=== PATIENT | male | born 1965 | race Caucasian/White ===

== ENCOUNTER → 2023-03-08 | Outpatient (CLI) | payer BC, SELFPAY ==
[2023-03-08 12:43] LABS: Absolute Lymphocyte Count 1.32 X10^3/uL (0.83-4.51); Absolute Neutrophil Count 2.6 X10^3/uL (2.0-7.7); Basophil% 2.1 % (0-1); Eosinophil# 0.29 X10^3/uL; Hematocrit 45.5 % (40-54); Lymphocyte # 1.32 X10^3/ul (0.83-4.51); Lymphocyte % 27.4 % (19-41); Mean Corpuscular Hgb 28.2 pg (27.0-32.0); Mean Corpuscular Volume 85.5 fL (80-94); Monocyte# 0.51 X10^3/uL; Monocyte% 10.6 % (0-10); NRBC Flagged by Analyzer 0 % (0-5); Neutrophil # 2.58 X10^3/uL (2.7-7.7); Neutrophil % 53.5 % (47-70); Platelet Count 285 K/mm3 (150-450); RBC Distribution Width CV 12.9 % (11.6-14.6); RBC Distribution Width SD 39.2 fl (35.1-43.9); Red Blood Count 5.32 M/mm3 (4.6-6.2); White Blood Count 4.8 K/mm3 (4.4-11.0)
[2023-03-08 13:20] LABS: ALB/GLOB Ratio 1.1 RATIO (0.9-2.4); AST(SGOT) 24 U/L (15-37); Alanine Aminotransfer ALT/SGPT 44 U/L (16-61); Albumin, Serum 3.9 g/dL (3.2-5.0); Alkaline Phosphatase 70 U/L (45-117); Anion Gap 4 (5-15); BUN 17 mg/dL (7-18); BUN/Creat Ratio 18.8 RATIO (10-20); Chloride 108 mmol/L (98-107); Cholesterol 271 mg/dL (200); EST Glomerular Filtration Rate 93 mL/min (>60); Est Glom Filt Rate - Afr Amer 112 mL/min (>60); Globulin 3.5 g/dL (2.2-4.2); Glucose 103 mg/dL (74-106); High Density Lipoprotein 62 mg/dL; PSA,Total- Diagnostic 1.49 ng/mL (0.0-4.0); Potassium 4.2 mmol/L (3.5-5.1); Protein, Total 7.4 g/dL (6.4-8.2); Sodium Level 139 mmol/L (136-145); Triglycerides 141 mg/dL; Very Low Density Lipoprotein 28 mg/dL (5-40)
== END | disposition home or self-care (01) ==
LOC: BIMLAB 09:29
PROVIDERS: PCP Internal Medicine; Referring Provider Internal Medicine; Visit Provider Internal Medicine
DX: E78.2 Mixed hyperlipidemia (principal); N39.43 Post-void dribbling; K62.5 Hemorrhage of anus and rectum
CPT/HCPCS: 36415; 80053; 80061; 84153; 85025

== ENCOUNTER 2023-05-11 06:46 | Day surgery (SDC) | payer BC, SELFPAY ==
--- NOTE | 2023-05-11 | COLBX_PTH ---
PATIENT: ISAEL SERRANO III LOC: EN U#:[id number] AGE/SX: 58/M ROOM: RE05/11/[address]: Dr. Pasquale Serna MD : 1965 BED: DIS: 05/11/2023 SPEC #: [id number] RECD: 05/11/23 11:44 STATUS: BARNEY QUEEN #: [id number] EDY: 05/11/23 00:[address]: Pasquale Serna DEPT: SURGICAL PATHOLOGY RECD BY: Gurinder Steve ENTERED: 05/11/23 11:45 SP TYPE: COLON BX OTHR DR: Dr. Juanita Regan MD Tissues: A - COLON BIOPSY B - Rectum, NOS Procedures: Surgery Specimen Level IV HEADER OPERATION: Colonoscopy with polypectomy PRE-OP DIAGNOSIS: Blood in stool TISSUE SUBMITTED: A- Colon polyp descending colon, B- Colon polyp rectum MICROSCOPIC DIAGNOSIS A. Descending colon polyp, polypectomy: Tubular adenoma with cautery artifacts. B. Rectum polyp, polypectomy: Hyperplastic polyp with cautery artifacts. Mikey 05/14/23 MICROSCOPIC DESCRIPTION Slides are reviewed. GROSS DESCRIPTION A. Received in fixative is one container labeled with the patient's name and designated Colon polyp descending colon. The specimen consists of one irregular fragment of light polo soft tissue that measures 0.4 x 0.3 x 0.1 cm. The specimen is totally submitted in one cassette. B. Received in fixative is one container labeled with the patient's name and designated Colon polyp rectum. The specimen consists of one irregular fragment of light polo soft tissue that measures 0.3 x 0.3 x 0.1 cm. The specimen is totally submitted in one cassette. Ramin 05/11/2023 TC:1 CPT: 74179A7
[2023-05-11 07:11] VITALS: BP 124/85; PULSE 66; RESP 16; TEMP 36.7; O2SAT 96; BMI 30.3
[2023-05-11] MEDS: Lactated Ringers 1,000 ML 15 ML IV (07:14)
--- NOTE | 2023-05-11 08:40 | PCM.HP.BLA ---
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 Is patient in pain?: No Allergies No Known Allergies Allergy (Unverified 03/23/23 14:35) Medications multivitamin with minerals-folic acid 200 mcg chewable tablet (Men's Daily Gummies) tab PO 11/24/22 [History Confirmed 03/23/23] atorvastatin 10 mg tablet (Lipitor) 10 mg PO QHS #30 tabs 03/09/23 [Rx Confirmed 03/23/23] PFSH Medical History De Quervain's tenosynovitis, right Ganglion cyst of dorsum of right wrist GERD (gastroesophageal reflux disease) Hyperlipemia Mitral valve prolapse Right carpal tunnel syndrome Right wrist pain Surgical History No pertinent past surgical history Family History Aunt DiabetesAunt Heart diseaseFather Hyperlipidemia SchizophreniaGrandfather AlcoholismMother ArthritisGrandmother ArthritisSister Skin cancerOther Hypertension Social History adopted: No household members: spouse and children number of children: 2 current occupational status: employed 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 pets and animals: Yes Smoking Status: Former smoker quit date: 02/13/96 pack-years: 13 Tobacco: How many years used: 13 Electronic Cigarette Use: not used alcohol intake: current alcohol intake frequency: 0-2 drinks per day Alcohol type: hard liquor substance use type: does not use caffeine: Yes (3) Type: coffee frequency: 1-2 times per week seatbelt use: always do you feel safe at home: Yes HPI HPI HPI: Patient is a 57-year-old male here for rectal bleeding. He reports the bleeding started 5 to 6 years ago. He says it is painless and it was bright red but it is becoming a little bit darker. He says this happens about 75% of his bowel movements. He had a colonoscopy 3 years ago and a few polyps were removed but nothing was done about the continued bleeding and he continued to bleed for the last 3 years. He denies any abdominal pain. No family history of colon cancer. ROS General General: Yes weight change (gain) HEENT HEENT: Yes difficulty swallowing Musc Musculoskeletal: Yes arthritis Gastro Gastrointestinal: Yes blood in stool Exam Const General: cooperative Orientation: alert and oriented x3 HENMT Head: normal to inspection Neck Neck: normal visual inspection and full ROM Chest Chest palpation & inspection: normal inspection of the chest Resp Effort & Inspection: normal respiratory effort Auscultation: clear to auscultation bilaterally Cardio Rate: regular rate Rhythm: regular rhythm GI Inspection: non-distended Palpation: soft and nontender Skin General: no rashes or lesions noted Neuro General: patient alert and patient oriented x3 Extrem General: full ROM Psych Appearance: grossly normal Mental Status: mental status grossly normal Assessment and Plan Assessment and Plan (1) Blood in stool: Status: Acute Plan: Patient is having blood in his stool but he also reported that it is becoming darker. I am more concerned for a more proximal bleed. I would like to perform a repeat colonoscopy to evaluate the colon and to reassess the hemorrhoids. If the patient has no other source of bleeding and has large hemorrhoids I would bring the patient back to discuss hemorrhoidectomy with him. I explained endoscopy in detail to the patient. I explained the risks including but not limited to stroke or heart attack with anesthesia, perforation of the GI tract, bleeding, infection. I explained that any of these could necessitate further emergency surgery. The patient understands and all questions were answered sufficiently. The patient wishes to proceed with procedure. Pasquale Serna MD Pager: [facility] [address] [place] [address], [address] [place] [address] Office: I have examined the patient and the H&P has been reviewed. There are no clinical changes since date of exam.
[2023-05-11 09:08] VITALS: BP 103/75; BP 124/85; PULSE 63; RESP 16; TEMP 36.4; O2SAT 96
[2023-05-11 09:10] VITALS: BP 104/77; BP 124/85; PULSE 67; RESP 16; O2SAT 97
--- NOTE | 2023-05-11 09:11 | OP.COLON_ITS ---
Patient Name: Bill Alexander Procedure Date: 05/11/2023 8:40 AM Date of : 1965 Age: 58 Procedure: Colonoscopy Indications: Rectal bleeding Providers: Pasquale Serna MD Referring MD: Juanita Regan Md Medicines: Propofol per Anesthesia Patient Profile: This is a 58 year old male. Refer to note in patient chart for documentation of history and physical. Last Colonoscopy: none. The patient's first colonoscopy is today. Complications: No immediate complications. Estimated blood loss: Minimal. Procedure: Pre-Anesthesia Assessment: - Prior to the procedure, a History and Physical was performed, and patient medications and allergies were reviewed. The patient's tolerance of previous anesthesia was also reviewed. The risks and benefits of the procedure and the sedation options and risks were discussed with the patient. All questions were answered, and informed consent was obtained. Prior Anticoagulants: The patient has taken no anticoagulant or antiplatelet agents. After reviewing the risks and benefits, the patient was deemed in satisfactory condition to undergo the procedure. After I obtained informed consent, the scope was passed under direct vision. Throughout the procedure, the patient's blood pressure, pulse, and oxygen saturations were monitored continuously. The Colonoscope was introduced through the anus and advanced to the cecum, identified by appendiceal orifice and ileocecal valve. The colonoscopy was performed without difficulty. The patient tolerated the procedure well. The quality of the bowel preparation was good. The ileocecal valve, appendiceal orifice, and rectum were photographed. Scope In: 8:46:05 AM Scope Withdrawal Time 0 hours 12 minutes 13 seconds Scope Out: 9:02:43 AM Total Procedure Duration Time 0 hours 16 minutes 38 seconds Findings: Internal hemorrhoids were found during retroflexion. Two polyps were found in the rectum and descending colon. The polyps were small in size. These polyps were removed with a hot snare. Resection and retrieval were complete. The exam was otherwise without abnormality on direct and retroflexion views. Impression: - Internal hemorrhoids. - Two small polyps in the rectum and in the descending colon, removed with a hot snare. Resected and retrieved. - The examination was otherwise normal on direct and retroflexion views. Recommendation: - Discharge patient to home. - Resume previous diet. - Continue present medications. - Await pathology results. - Repeat colonoscopy in 5 years for surveillance. Procedure Code(s): --- Professional --- 35303, Colonoscopy, flexible; with removal of tumor(s), polyp(s), or other lesion(s) by snare technique Diagnosis Code(s): --- Professional --- K64.8, Other hemorrhoids D12.8, Benign neoplasm of rectum D12.4, Benign neoplasm of descending colon K62.5, Hemorrhage of anus and rectum CPT copyright 2021 [employer]. All rights reserved. The codes documented in this report are preliminary and upon tire mounter review may be revised to meet current compliance requirements. Pasquale Serna MD 05/11/2023 9:10:34 AM This report has been signed electronically. Number of Addenda: 0 Note Initiated On: 05/11/2023 8:40 AM
--- NOTE | 2023-05-11 09:11 | OP.CCLET_ITS ---
05/11/2023 Juanita Regan Md Re : Colonoscopy procedure for Bill Alexander Dear Jass This procedure was performed on Thursday, May 11, 2023. My impressions and recommendations are as follows: Impressions : - Internal hemorrhoids. - Two small polyps in the rectum and in the descending colon, removed with a hot snare. Resected and retrieved. - The examination was otherwise normal on direct and retroflexion views. Recommendations : - Discharge patient to home. - Resume previous diet. - Continue present medications. - Await pathology results. - Repeat colonoscopy in 5 years for surveillance. My findings are described in the full procedure note, which is enclosed. If I can be of further assistance, please feel free to contact me at Doctor phone number(s): , Work: . Sincerely, Pasquale Serna MD 05/11/2023 9:10:34 AM This report has been signed electronically.
[2023-05-11 09:15] VITALS: BP 113/73; BP 124/85; PULSE 61; RESP 16; O2SAT 98
[2023-05-11 09:20] VITALS: BP 112/74; BP 124/85; PULSE 59; RESP 16; TEMP 36.1; O2SAT 99
[2023-05-11 09:39] VITALS: BP 124/85
== END 2023-05-11 09:42 | disposition home or self-care (01) ==
LOC: EN 06:48 → AC 06:49
PROVIDERS: PCP Internal Medicine; Referring Provider Internal Medicine; Visit Provider Surgery
PROC: 0DJD8ZZ Inspection of Lower Intestinal Tract, Via Natural or Artificial Opening Endoscopic (ICD-10-PCS; CPT 45378; principal; 2023-05-11 07:55)
DX: K64.8 Other hemorrhoids (principal); K62.5 Hemorrhage of anus and rectum; D12.4 Benign neoplasm of descending colon; D12.8 Benign neoplasm of rectum; E78.5 Hyperlipidemia, unspecified; Z87.891 Personal history of nicotine dependence; Z90.49 Acquired absence of other specified parts of digestive tract
CPT/HCPCS: 45385; 88305; J7120; J2405

== ENCOUNTER → 2023-05-22 | Outpatient (CLI) | payer BC, SELFPAY ==
--- NOTE | 2023-05-22 10:58 | ECHOCS_ITS ---
Reason For Study: MVP, Personal Hx of other disease of the circulatory system Procedure This was a 2D Doppler, Color Flow transthoracic echocardiogram. Contrast injection was performed. Exam performed in department. Left Ventricle Normal LV size. The estimated ejection fraction is 60 %. No evidence for diastolic dysfunction. No regional wall motion abnormalities noted. Right Ventricle Normal RV size. Normal systolic function. Atria Normal left atrium. Normal right atrium. No doppler evidence for ASD. Mitral Valve There is no mitral valve stenosis. Trivial mitral valve insufficiency. Tricuspid Valve There is no tricuspid valve prolapse. There is no tricuspid stenosis. Aortic Valve Trisinus/trileaflet aortic valve. There is no aortic stenosis. No aortic valve insufficiency. Pulmonic Valve There is no pulmonic valvular stenosis. Trivial pulmonic valve insufficiency. Great Vessels Normal aortic root. Pericardium/Pleural No pericardial effusion. Medication 22 gauge I.V. with prn adaptor inserted into right arm. Diluted definity 2ml given slow IV push to enhance endocardial definition. MMode/2D Measurements & Calculations LVIDd: 4.6 cm IVSd: 0.82 cm Ao root diam: 3.6 cm LVIDs: 3.2 cm LVPWd: 1.0 cm LA dimension: 3.6 cm RVDd: 3.4 cm FS: 29.9 % LAV(MOD-bp): 43.7 ml LA A4 area: 16.8 cm2 RA A4 area: 12.1 cm2 LAV(MOD-bp) Indexed: 20.5 ml/m2 LAV(MOD-sp2): 47.1 ml LAV(MOD-sp4): 39.6 ml TAPSE: 1.7 cm Time Measurements MV dec time: 0.25 sec Doppler Measurements & Calculations MV E max adarsh: 69.2 cm/sec Lat Peak E' Adarsh: 14.0 cm/sec Med Peak E' Adarsh: 9.2 cm/sec MV A max adarsh: 81.3 cm/sec E/E' lat: 5.0 E/E' med: 7.6 MV E/A: 0.85 MV V2 max: 106.1 cm/sec MV P1/2t max adarsh: 92.8 cm/sec Ao V2 max: 141.2 cm/sec MV max P.5 mmHg MV P1/2t: 91.1 msec Ao max P.0 mmHg MV V2 mean: 55.7 cm/sec MV dec slope: 298.6 cm/sec2 Ao V2 mean: 98.6 cm/sec MV mean P.5 mmHg MVA(P1/2t): 2.4 cm2 Ao mean P.4 mmHg MV V2 VTI: 28.1 cm Ao V2 VTI: 30.5 cm AV (velocity ratio): 0.73 LV V1 max: 110.0 cm/sec PA V2 max: 135.7 cm/sec LV V1 max P.9 mmHg PA V2 mean: 87.0 cm/sec LV V1 mean P.7 mmHg LV V1 mean: 78.1 cm/sec LV V1 VTI: 22.2 cm ECHO/Echo Complete W/ Contrast Interpretation Summary The estimated ejection fraction is 60 %. No evidence for diastolic dysfunction. Trivial mitral valve insufficiency. Ordering Physician: Juanita Regan Referring Physician: Juanita Regan Performed By: Ephraim Epps RCS
== END | disposition home or self-care (01) ==
PROVIDERS: PCP Internal Medicine; Referring Provider Internal Medicine; Visit Provider Internal Medicine
DX: Z86.79 Personal history of other diseases of the circulatory system (principal); I05.9 Rheumatic mitral valve disease, unspecified
CPT/HCPCS: 93306; Q9957; A4216; C8929

== ENCOUNTER 2023-07-17 15:29 | Outpatient (RCR) | payer BC, SELFPAY ==
--- NOTE | 2023-07-17 16:17 | HP.PTEVAL_ITS ---
Patient's Visit Information Visit Information Visit Information: ISAEL SERRANO III is a 58 year old M referred to Physical Therapy by ARABELLA Becerra with a diagnosis of BPPV. Date of Evaluation: 07/17/23 Physical Therapist: Gagan Awan, ELLAT, OCS, CSCS Visit Plan Frequency: 1-2x /Week Duration: 2-4 Weeks Plan: 1-2x/week as needed for positional treatments. Treated at IE with L modified domenic 2x and felt well after the second one. Educated on precautions and course of therapy Future session should focus on positional treatments and BD ex if needed. Pt has vacation planned week of 07/28 to [place] Subjective Subjective: Rolling in bed makes dizzy and lightheaded and to the left. Sitting up can get it disoriented for 30 seconds. Getting out of bed can cause it a little bit. Feels normal in between those episodes. May happen if bends down and comes back up get head thao. Quick rotations can cause it. Dizzyness is described as unsteady and fell once when turned away from grill. This has been happening 3-4 weeks. No obvious onset. Did start cholesterol meds 3 months ago. Activities are pretty normal he just takes his time and preps for it. Sleeping is Ok. changed to sleeping flat 3-4 days ago. 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 No problems with that. 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 Objective Objective: Walks into PT slowly but steadily and I. Transfers chair and table I. Steps reciprocal without rail but hesitated turning at the top. cervical aROM WFL and without pain. UE AROM WFL and without pain Sensation UE WNL to gross light touch. Strength UE 4/5 without pain. - R Hallpike - roll test + L hallpike boo for up torsional nystagmus 5 seconds, treated with L modified domenic and then better test adn treated again. Slightly unusual in that he had symptoms after the first treatment coming back to sitting and that runing around causes him some quick symptoms. Balance/Special Test Scores Functional Gait Assessment Score: 28 % Disability: 6.6700 Dizziness Score: 20 Goals Goal 1:: abolish vertigo 100% Goal Time Frame: 2-4 Weeks Goal 2:: DHI score 2 or better. Goal Time Frame: 2-4 Weeks Goal 3:: Pt score 30 on FGA Goal Time Frame: 2-4 Weeks Rehabilitation Potential Physical Therapy Diagnosis: L BPPV canalithiasis post canal causing unsteadiness Rehabilitation Potential: Good Anticipated Interventions Patient/Client Instruction: Educate patient on: Condition For the Purpose of:: To improve muscle performance and motor function and To increase tolerance to activity/condition/position Comment: positional treatments and exercises and balance as needed. For the Purpose of:: To increase tolerance to activity/condition/position and To improve gait and locomotor functions Text: Thank you for the opportunity to evaluate your patient. For Medicare and Medicare HMO plans, please review the plan of care and approve it. It will need to be FAXED BACK to us at [phone] for Medicare purposes. For Medicare only, by signing this I certify the plan of care. Please let me know if there are questions or concerns regarding this plan of care. Physician Signature: Date:
--- NOTE | 2023-09-19 07:27 | HP.PT.NRP ---
Patient Information Patient Information: ISAEL SERRANO III was seen in my office for initial evaluation on 07/17/23. The following Plan of Care was established for this patient: POC Established Initial Frequency: 1-2x /Week Initial Duration: 2-4 Weeks Anticipated Interventions Patient/Client Instruction: Educate patient on: Condition For the Purpose of:: To improve muscle performance and motor function and To increase tolerance to activity/condition/position For the Purpose of:: To increase tolerance to activity/condition/position and To improve gait and locomotor functions Last Seen Last Seen: This patient was last seen in our office 07/17/23. Pertinent comments regarding their Physical therapy will appear below: Pt seen for eval and positional treatments and was to f/u weekly but did not schedule or attend any further visits. At this point, it has been over a month and I will discontinue due to nonattendnace. At this point I will be discontinuing this patient from physical therapy. I would be happy to see this patient again in the future if found appropriate by the physician. Thank you! Gagan Awan, DPT, OCS, CSCS Balance/Gait/Functional tests Balance/Special Test Scores Functional Gait Assessment Score: 28 % Disability: 6.6700 Dizziness Score: 20
== END 2023-07-17 19:00 | disposition home or self-care (01) ==
LOC: PT 15:29
PROVIDERS: PCP Internal Medicine; Referring Provider Physician Assistant; Visit Provider Physician Assistant
DX: H81.10 Benign paroxysmal vertigo, unspecified ear (principal)
CPT/HCPCS: 97161

== ENCOUNTER → 2023-09-04 | Outpatient (CLI) | payer BC, SELFPAY ==
[2023-09-04 11:54] LABS: Absolute Lymphocyte Count 1.18 X10^3/uL (0.83-4.51); Absolute Neutrophil Count 2.1 X10^3/uL (2.0-7.7); Basophil# 0.08 X10^3/uL; Eosinophil# 0.24 X10^3/uL; Hematocrit 41.5 % (40-54); Hemoglobin 13.8 g/dL (13.0-16.5); Lymphocyte # 1.18 X10^3/ul (0.83-4.51); Lymphocyte % 29.4 % (19-41); Mean Corp Hgb Conc 33.3 g/dL (32-36); Mean Corpuscular Hgb 28.5 pg (27.0-32.0); Mean Corpuscular Volume 85.7 fL (80-94); Mean Platelet Vol. 11.5 fl (6.2-12.0); Monocyte# 0.41 X10^3/uL; Monocyte% 10.2 % (0-10); NRBC Flagged by Analyzer 0 % (0-5); Neutrophil # 2.09 X10^3/uL (2.7-7.7); Neutrophil % 51.9 % (47-70); Platelet Count 237 K/mm3 (150-450); RBC Distribution Width CV 12.6 % (11.6-14.6); RBC Distribution Width SD 39.2 fl (35.1-43.9); Red Blood Count 4.84 M/mm3 (4.6-6.2)
[2023-09-04 12:50] LABS: ALB/GLOB Ratio 1.1 RATIO (0.9-2.4); AST(SGOT) 31 U/L (15-37); Alanine Aminotransfer ALT/SGPT 56 U/L (16-61); Albumin, Serum 3.6 g/dL (3.2-5.0); Alkaline Phosphatase 68 U/L (45-117); Anion Gap 9 (5-15); BUN 14 mg/dL (7-18); BUN/Creat Ratio 18.6 RATIO (10-20); Chloride 108 mmol/L (98-107); Cholesterol 171 mg/dL (200); Creatinine, Serum 0.75 mg/dL (0.70-1.30); EST Glomerular Filtration Rate 114 mL/min (>60); Est Glom Filt Rate - Afr Amer 138 mL/min (>60); Globulin 3.2 g/dL (2.2-4.2); Glucose 115 mg/dL (74-106); High Density Lipoprotein 57 mg/dL; Potassium 3.8 mmol/L (3.5-5.1); Protein, Total 6.8 g/dL (6.4-8.2); Sodium Level 140 mmol/L (136-145); Triglycerides 106 mg/dL; Very Low Density Lipoprotein 21 mg/dL (5-40)
== END | disposition home or self-care (01) ==
LOC: BIMLAB 08:07
PROVIDERS: Nurse Practitioner; PCP Internal Medicine; Referring Provider Physician Assistant; Visit Provider Physician Assistant
DX: E78.5 Hyperlipidemia, unspecified (principal)
CPT/HCPCS: 36415; 80053; 80061; 85025

== ENCOUNTER 2024-12-20 15:07 | Emergency (ER) | payer BC, SELFPAY ==
[2024-12-20 15:08] VITALS: BP 144/94; PULSE 85; RESP 18; TEMP 35.8; O2SAT 97
--- OUTSIDE RECORDS SUMMARY | 2024-12-20 15:32 | XMS RPT_ITS | CCD ---
Author Organization [facility] Care Team Providers Care Lymphedema Therapist Name Role Phone MD Edwin Jordan Attending Provider [phone] Florencio Mirza Attending Provider Dr. Juanita Regan Attending Provider [phone] Dr. Juanita Regan Attending Provider [phone] Dr. Juanita Regan Primary Care Provider Dr. Juanita Regan Referring Provider Dr. Pasquale Serna Attending Provider [phone] Dr. Pasquale Serna Other Provider Dr. Vanita Beaver Attending Provider [phone] [phone] Primary Care Provider Dr. Juanita Wilson MD Primary Care Provider [phone] Dr. Juanita Regan MD Referring Provider Robert Lindsey Attending Provider Robert Lindsey Attending Unavailable Juanita Regan Referring Unavailable Juanita Regan Primary Care Unavailable Medications Current Medications Medication Drug Class(es) Dates Sig (Normalized) Sig (Original) amoxicillin 875 mg / clavulanate 125 mg oral tablet (1 source) Penicillin-class Antibacterial Start: 09-07-2024 End: 09-17-2024 take 1 tablet by mouth twice daily amoxicillin-clavulan ate (Augmentin) 875-125 mg tablet Indications: Sinobronchitis Take 1 tablet by mouth 2 times a day for 10 days. 20 tablet 09/07/2024 09/17/2024 Active Ascorbic Acid (3 sources) Vitamin C Start: 2023 take 1 tablet by mouth once daily Ascorbic Acid (Vitamin C) (C-1000) 1,000 mg tablet Active 1 g PO DAILY 2023 12:00am Start: 2023 take 1 tablet by mouth once da hanna Ascorbic Acid (Vitamin C) (C-1000) 1,000 mg tablet Active 1 GM PO DAILY 2023 12:00am atorvastatin 10 mg oral tablet (15 sources) HMG-CoA Reductase Inhibitor Start: 03-09-2023 End: 10-10-2024 take 1 tablet by mouth at bedtime Atorvastatin (Lipitor) 10 mg tablet Active 10 mg PO AT BEDTIME 90 2 October 10, 2024 4:09pm benzonatate 200 mg oral capsule (1 source) Non-narcotic Antitussive Start: 09-07-2024 take 1 capsule by mouth three times daily as needed for cough benzonatate (Tessalon) 200 mg capsule Indications: Sinobronchitis Take 1 capsule (200 mg) by mouth 3 times a day as needed for cough for up to 30 doses. Do not crush or chew. 30 capsule 09/07/2024 Active loratadine 10 mg oral tablet (3 sources) Start: 2023 take 1 tablet by mouth once daily Loratadine (Allergy Relief (Loratadine)) 10 mg tablet Active 10 mg PO DAILY 2023 12:00am Multivit With Min-Folic Acid (Men's Daily Gummies) 200 mcg tablet,chewable (4 sources) Start: 11-24-2022 take 1 tablet by mouth once daily Multivit With Min-Folic Acid (Men's Daily Gummies) 200 mcg tablet,chewable Active 1 {tbl} PO DAILY November 24, 2022 12:00am Start: 11-24-2022 take 1 tablet by jonatan th once daily Multivit With Min-Folic Acid (Men's Daily Gummies) 200 mcg tablet,chewable Active 1 TABLET PO DAILY November 24, 2022 12:00am Start: 11-24-2022 take 1 tablet by mouth once Mu ltivit With Min-Folic Acid (Men's Daily Gummies) 200 mcg tablet,chewable Active TABLET PO November 23, 2022 11:00pm niacin 500 mg extended release oral capsule (1 source) Nicotinic Acid Start: 06-28-2023 take 1 capsule by mouth once daily Niacin 500 mg capsule, extended release Active 500 mg PO DAILY June 28, 2023 12:00am predniSONE 10 mg oral tablet (2 sources) Start: 09-07-2024 predniSONE (Deltasone) 10 mg tablet Indications: Sinobronchitis Take 6 tabs by mouth on days 1-3; then take 4 tabs by mouth on days 4-6; then take 2 tabs by mouth on days 7-9. 20 tablet 09/07/2024 Active sildenafil 50 mg oral tablet (1 source) Phosphodiesterase 5 Inhibitor Start: 08-24-2023 Sildenafil 50 mg tablet Active 50 mg PO DAILY as needed for sexual activity 12 August 24, 2023 12:00am administer 30 minutes to 4 hours before activity ubidecarenone 100 mg oral capsule (3 sources) Start: 2023 Coenzyme Q10 (Co Q-10) 100 mg capsule Active 100 mg PO DAILY 2023 12:00am vitamin e 100 unt oral capsule (1 source) Start: 06-28-2023 take 1 capsule by mouth once daily Vitamin E (Dl, Acetate) 45 mg (100 unit) capsule Active 45 mg PO DAILY June 28, 2023 12:00am Zinc (3 sources) Start: 2023 take 1 tablet by mouth once daily Zinc 50 mg tablet Active 50 mg PO DAILY 2023 12:00am Start: 2023 take 50 mg by mouth once daily Zinc Active 50 MG PO DAILY 2023 12:00am Completed/Discontinued Medications Medication Drug Class(es) Dates Sig (Normalized) Sig (Original) meclizine hydrochloride 25 mg oral tablet (1 source) Antiemetic Start: 06-28-2023 End: 08-24-2023 take 1 tablet by mouth three times daily as needed for dizziness Meclizine 25 mg tablet Discontinued 25 mg PO THREE TIMES A DAY as needed for dizziness 30 0 June 28, 2023 12:00am August 24, 2023 3:59pm Problems Problem Classification Problem Date Documented Da te Episodic/Chronic Administrative/social admission (3 sources) Persons encountering health services in other specified circumstances; Translations: [Other reasons for seeking consultation] 03-08-2023 Episodic Conditions associated with dizziness or vertigo (2 sources) Benign paroxysmal positional vertigo; Translations: [Benign paroxysmal vertigo, unspecified ear] 08-24-2023 Episodic Disorders of lipid metabolism (6 sources) Mixed hyperlipidemia; Translations: [Mixed hyperlipidemia] 03-08-2023 Chronic Gastrointestinal hemorrhage (8 sources) Hemorrhage of anus and rectum; Translations: [Hemorrhage of rectum and anus] 03-08-2023 Episodic Genitourinary symptoms and ill-defined conditions (3 sources) Post-void dribbling; Translations: [Post-void dribbling] 03-08-2023 Chronic Immunizations and screening for infectious disease (4 sources) Encounter for immunization; Translations: [Need for prophylactic vaccination and inoculation against unspecified single disease] 03-08-2023 Episodic Other circulatory disease (3 sources) Personal history of other diseases of the circulatory system; Translations: [Personal history of other diseases of circulatory system] 03-08-2023 Episodic Other connective tissue disease (4 sources) Tenosynovitis of right radial styloid; Translations: [Radial styloid tenosynovitis [de Quervain]] 11-24-2022 Episodic Other connective tissue disease (4 sources) Ganglion cyst of right dorsal wrist; Translations: [Ganglion, right wrist] 11-24-2022 Episodic Other connective tissue disease (1 source) Radial styloid tenosynovitis [de Quervain]; Translations: [Radial styloid tenosynovitis] 11-24-2022 Episodic Other connective tissue disease (1 source) Ganglion, right wrist; Translations: [Ganglion of joint] 11-24-2022 Episodic Other male genital disorders (1 source) Cannot sustain an erection; Translations: [Male erectile dysfunction, unspecified] 08-24-2023 Chronic Other nervous system disorders (1 source) Carpal tunnel syndrome; Translations: [Carpal tunnel syndrome, right upper limb] 11-24-2022 Chronic Other nervous system disorders (1 source) Carpal tunnel syndrome, right upper limb; Translations: [Carpal tunnel syndrome] 11-24-2022 Chronic Other nervous system disorders (3 sources) Carpal tunnel syndrome of right wrist; Translations: [Carpal tunnel syndrome, right upper limb] 11-24-2022 Chronic Other non-traumatic joint disorders (4 sources) Pain in wrist; Translations: [Pain in right wrist] 11-24-2022 Episodic Other non-traumatic joint disorders (4 sources) Pain in right wrist; Translations: [Pain in joint, forearm] 11-24-2022 Episodic Other screening for suspected conditions (not mental disorders or infectious disease) (5 sources) Encounter for screening for malignant neoplasm of colon; Translations: [Special screening for malignant neoplasms of colon] Onset: 10-10-2024 03-08-2023 Episodic Other upper respiratory infections (1 source) Chronic sinusitis; Translations: [Chronic sinusitis, unspecified] 09-07-2024 Chronic Other upper respiratory infections (1 source) Sore throat symptom; Translations: [Acute pharyngitis, unspecified] 09-07-2024 Episodic Results Test Name Value Interpretation Reference Range Facility Internal Medicine Office Vis kendall 10-10-2024 Internal Medicine Office Visit [facility] [place], [place] [address] OFFICE VISIT Date of Service: 10/10/24 MR#: [id number] Acct: [id number] Name: ISAEL ALEXANDER III Rep #: [id number] : 1965 Provider: ARABELLA Becerra Age/Sex: 59/M Location: [facility] Status: Signed Intake Vital Signs 08/24/23 16:00 10/10/24 15:45 Height 5 ft 10 in 5 ft 10 in Weight: 205 lb BMI 29.4 BP 118/64 Blood Pressure Location Lt brachial Position Sitting Respiration 16 Pulse 78 Pulse Source Monitor Temp 97.1 F L Temp Source Temporal Pulse Oximetry (%) 97 Oxygen Delivery Method room air Intake Visit Reasons: YEARLY Chief Complaint: yearly [employer] Required: No Accompanied by: Self Is patient in pain?: No Allergies No Known Allergies Allergy (Verified 10/10/24 15:43) Medications ???Medication ???Instructions ???Recorded ???Confirmed ???Type multivitamin with minerals-folic 1 tab PO DAILY 11/24/22 10/10/24 H istory acid 200 mcg chewable tablet (Men's Daily Gummies) ascorbic acid (vitamin C) 1,000 mg 1 g PO DAILY 03/27/24 08/29/25 H istory tablet (C-1000) coenzyme Q10 100 mg capsule (Co 100 mg PO DAILY 05/09/23 10/10/24 History Q-10) loratadine 10 mg tablet (Allergy 10 mg PO DAILY 05/09/23 10/10/24 H istory Relief (loratadine)) zinc 50 mg tablet 50 mg PO DAILY 05/09/23 10/10/24 H istory niacin 500 mg capsule,extended 500 mg PO DAILY 06/28/23 10/10/24 History release vitamin E (dl, acetate) 45 mg (100 45 mg PO DAILY 06/28/23 10/10/24 History unit) capsule sildenafil 50 mg tablet 50 mg PO DAILY PRN sexual activity 08/24/23 10/10/24 Rx #12 tabs atorvastatin 10 mg tablet (Lipitor) 10 mg PO QHS #90 tabs 10/10/24 10/10/24 Rx benzonatate 200 mg capsule 200 mg PO TID PRN cough #30 caps 0 10/10/24 10/10/24 Rx Nurse's Note: yearly 6 weeks ago sick and went to [facility] tested for everything just had sinus and bronchitis anitbiotic and steroids still has cough headaches and not feeling 100% PFSH Medical History Wears glasses Alcohol use History of steroid therapy High cholesterol Former smoker History of stress test Chest pain History of echocardiogram History of irregular heartbeat GERD (gastroesophageal reflux disease) Hyperlipemia Ganglion cyst of dorsum of right wrist De Quervain's tenosynovitis, right Right carpal tunnel syndrome Right wrist pain Mitral valve prolapse Surgical History Hx of colonoscopy No pertinent past surgical history Family History Aunt Diabetes Aunt Heart disease Father Hyperlipidemia Schizophrenia Grandfather Alcoholism Mother Arthritis Grandmother Arthritis Sister Skin cancer Other Hypertension Social History adopted: No household members: spouse and children number of children: 2 current occupational status: employed 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 pets and animals: Yes Smoking Status: Former smoker quit date: 02/13/96 pack-years: 13 Tobacco: How many years used: 13 Electronic Cigarette Use: not used alcohol intake: current alcohol intake frequency: 0-2 drinks per day Alcohol type: hard liquor substance use type: does not use caffeine: Yes (3) Type: coffee frequency: 1-2 times per week seatbelt use: always do you feel safe at home: Yes HPI HPI Chief Complaint: yearly Details: ISAEL ALEXANDER, is a 59 M who presents to the office today for his routine value. HE does see eye doctor annually He does see dentist twice a year No nicotine Mild caffeine intake via 2-3 cups of coffee. He does also drink green tea (isn't sure of caffeine status) Patient is not a good water drinker. He states that he knows he could do better Patient is active. He states that this year he has not been as active due to some issues. He knows he can be more diligent on regular exercise Diet he states is fair. He consumes a lot of protein and limits sugars although he admits he does get a lot of ice cream. He does do colonoscopies every 3 years. He was getting them annually due to significant colonic polyposis. 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 He states that his last ECHO (for MVP) was normal he states. As far as he knows he is UTD with adult immunization. He has had shingles vaccine. He did get flu shot last HE is compliant with his cholesterol medication which he has been on for a very long time. He states that when he takes all the meds in the morning he gets a little "off feeling". He states that it is pretty mild and he does fine if he drinks a lot of w (more content not included)... Normal [facility] POCT SPOTFIRE R/ST Panel Min i w/COVID ([place]) manually resultedOrdered By: Adelso Medrano on 09-07-2024 POC Human Rhinovirus PCR Negative Negative [facility] POC Influenza A Virus PCR Negative Negative [facility] POC Influenza B Virus PCR Negative Negative [facility] POC Respiratory Syncytial Virus PCR Negative Negative [facility] POC Sars-Cov-2 PCR Negative Negative [facility] POCT rapid strep A manually resultedon 09-07-2024 Interpretation and review of laboratory results Normal [facility] Work Phone: POC Rapid Strep Negative Negative [facility] Work Phone: [facility] Work Phone: Absolute lymphocyte countOrd ered By: Juanita Regan on 03-08-2023 Lymphocytes Auto (Unsp spec) [#/Vol] 1.32 10*3/uL 0.83-4.51 [facility] Automated lymphocyte count a s percentage of total leukocytesOrdered By: Juanita Regan on 03-08-2023 Lymphocytes/100 WBC Auto (Unsp spec) 27.4 % 19-41 [facility] Basophil percentageOrdered B y: Juanita Regan on 03-08-2023 Basophil percentage 1.49 ng/mL 0.0-4.0 [facility] Comment on above: This test was perfor med using the TPSA assay method for the[employer]Fashioner chemistry system. Values obtained with differentassay methods cannot be used interchangably.When changing PSA assays in the course of monitoring apatient, additional sequential testing should be carriedout to confirm baseline values. Basophils/100 WBC (Bld) 2.1 % 0-1 [facility] Bilirubin [Mass/Vol] 0.60 mg/dL 0.20-1.00 [facility] Comment on above: For patients on eltr ombopag therapy, use of Dimension [place] TBIL is not recommended. Chloride [Moles/Vol] 108 mmol/L 98-107 [facility] Cholesterol [Mass/Vol] 271 mg/dL <200 [facility] Comment on above: <200 mg/dL Desirable 200-240 mg/dL Borderline >240 mg/dL High Risk Eosinophils/100 WBC (Bld) 6.0 % 0-5 [facility] Glucose [Mass/Vol] 103 mg/dL 74-106 [facility] Comment on above: Fasting Glucose resu lt from 100 to 125 mg/dL suggests IMPAIRED HOMEOSTASIS per A.D.A. criteria. Hemoglobin (Bld) [Mass/Vol] 15.0 g/dL 13.0-16.5 [facility] Monocytes/100 WBC (Bld) 10.6 % 0-10 [facility] Neutrophils (Bld) [#/Vol] 2.6 10*3/uL 2.0-7.7 [facility] Neutrophils/100 WBC (Bld) 53.5 % 47-70 [facility] Potassium [Moles/Vol] 4.2 mmol/L 3.5-5.1 [facility] Protein [Mass/Vol] 7.4 g/dL 6.4-8.2 [facility] Sodium [Moles/Vol] 139 mmol/L 136-145 [facility] Triglyceride [Mass/Vol] 141 mg/dL <199 [facility] Comment on above: The drugs N-Acetylcy steine and Metamizole may falsely depress this assay.Serum Triglycerides Reference Interval Normal <150 mg/dL Borderline high 150 - 199 mg/dL High 200 - 499 mg/dL Very High > or = 500 mg/dL WBC (Bld) [#/Vol] 4.8 10*3/uL 4.4-11.0 [facility] Determination of erythrocyte mean corpuscular volume (MCV)Ordered By: Juanita Regan on 03-08-2023 MCV (RBC) [Entitic vol] 85.5 fL 80-94 [facility] Erythrocyte distribution wid th ratioOrdered By: Juanita Regan on 03-08-2023 Erythrocyte distribution width (RBC) [Ratio] 12.9 % 11.6-14.6 [facility] Erythrocyte distribution wid th standard deviationOrdered By: Juanita Regan on 03-08-2023 Erythrocyte distribution width (RBC) [Entitic vol] 39.2 fL 35.1-43.9 [facility] Hematocrit Auto (Bld) [Volum e fraction]Ordered By: Juanita Regan on 03-08-2023 Hematocrit (Bld) [Volume fraction] 45.5 % 40-54 [facility] High density lipoprotein (HD L) measurementOrdered By: Juanita Regan on 03-08-2023 Cholesterol in HDL (Body fld) [Mass/Vol] 62 mg/dL >40 [facility] Comment on above: The drugs N-Acetylcy steine and Metamizole may falsely depress this assay. Reference Range HDL <40 mg/dL Low HDL Cholesterol HDL >or= 60 mg/dL High HDL Cholesterol Immature granulocytes/100 WB C Auto (Bld)Ordered By: Juanita Regan on 03-08-2023 Immature granulocytes/100 WBC (Bld) 0.400 % 0.0-0.9 [facility] Comment on above: IG% - Immature Granu locytes (promyelocytes, myelocytes and metamyelocytes) > 1% indicates that a LEFT SHIFT is Present. Laboratory - Chemistry and C hemistry - challengeOrdered By: Juanita Regan on 03-08-2023 Albumin/Globulin [Mass ratio] 1.1 {ratio} 0.9-2.4 [facility] ALP [Catalytic activity/Vol] 70 U/L 45-117 [facility] ALT [Catalytic activity/Vol] 44 U/L 16-61 [facility] CO2 [Moles/Vol] 27.0 mmol/L 21.0-32.0 [facility] Globulin (S) [Mass/Vol] 3.5 g/dL 2.2-4.2 [facility] Urea nitrogen/Creatinine [Mass ratio] 18.8 mg/mg 10-20 [facility] Laboratory - Hematology and Cell countsOrdered By: Juanita Regan on 03-08-2023 MCH (RBC) [Entitic mass] 28.2 pg 27.0-32.0 [facility] MCHC (RBC) [Mass/Vol] 33.0 g/dL 32-36 [facility] Nucleated RBC/100 WBC (Bld) [Ratio] 0 % 0-5 [facility] Platelets (Bld) [#/Vol] 285 10*3/uL 150-450 [facility] Low density lipoprotein (LDL ) cholesterol measurementOrdered By: Juanita Regan on 03-08-2023 Cholesterol in LDL (Body fld) [Moles/Vol] 181 mg/dL 0-130 [facility] No Panel InformationOrdered By: Juanita Regan on 03-08-2023 Estimated GFR (MDRD) Amer 112 mL/min >60 [facility] Comment on above: GFR Calc Estimated GFR (MDRD) Non-Af Amer 93 mL/min >60 [facility] Comment on above: Non- GFR Calc Platelet mean volume Mahin-Ec ker (Bld) [Entitic vol]Ordered By: Juanita Regan on 03-08-2023 Platelet mean volume (Bld) [Entitic vol] 11.0 fL 6.2-12.0 [facility] RBC Auto (Bld) [#/Vol]Ordere d By: Juanita Regan on 03-08-2023 RBC (Bld) [#/Vol] 5.32 10*6/uL 4.6-6.2 [facility] Serum or plasma calcium layo urement (mass/volume)Ordered By: Juanita Regan on 03-08-2023 Calcium [Mass/Vol] 9.0 mg/dL 8.5-10.1 [facility] Serum or plasma creatinine m easurement (mass/volume)Ordered By: Juanita Regan on 03-08-2023 Creatinine [Mass/Vol] 0.90 mg/dL 0.70-1.30 [facility] Comment on above: The validity of the calculated GFR & GFRAA in patients over 70 years has not been determined. Clinical correlation is essential. Serum or plasma urea nitroge n measurement (mass/volume)Ordered By: Juanita Regan on 03-08-2023 Urea nitrogen [Mass/Vol] 17 mg/dL 7-18 [facility] Thin prep Papanicolaou smear with manual screeningOrdered By: Juanita Regan on 03-08-2023 Thin prep Papanicolaou smear with manual screening 3.9 g/dL 3.2-5.0 [facility] Thin prep Papanicolaou smear with manual screening 24 U/L 15-37 [facility] Thin prep Papanicolaou smear with manual screening 4 5-15 [facility] Very low density lipoprotein (VLDL) cholesterol measurementOrdered By: Juanita Regan on 03-08-2023 Cholesterol in VLDL Calc [Moles/Vol] 28 mg/dL 5-40 [facility] Vital Signs Date Time Vital Sign Value Performing Clinician Facility 10-10-2024 15:45-0400 Body height 177.[address] Juanita Regan MD Work Phone: [facility] 10-10-2024 15:45-0400 Body mass index (BMI) [Ratio] 29.4 kg/m2 Dr. Juanita Regan MD Work Phone: [facility] 10-10-2024 15:45-0400 Body temperature 97.1 [degF] Dr. Juanita Regan MD Work Phone: [facility] 10-10-2024 15:45-0400 Body weight 92.[address] Juanita Regan MD Work Phone: [facility] 10-10-2024 15:45-0400 Diastolic blood pressure 64 mm[Hg] Dr. Juanita Regan MD Work Phone: [facility] 10-10-2024 15:45-0400 Heart rate 78 /min Dr. Juanita Regan MD Work Phone: [facility] 10-10-2024 15:45-0400 Respiratory rate 16 /min Dr. Juanita Regan MD Work Phone: [facility] 10-10-2024 15:45-0400 SaO2% (BldA) [Mass fraction] 97 % Dr. Juanita Regan MD Work Phone: [facility] 10-10-2024 15:45-0400 Systolic blood pressure 118 mm[Hg] Dr. Juanita Regan MD Work Phone: [facility] 09-07-2024 15:28-0400 Body height 175.3 cm Kendall Winters PA-C Work Phone: [facility] 09-07-2024 15:28-0400 Body mass index (BMI) [Ratio] 30.27 kg/m2 Kendall Winters PA-C Work Phone: [facility] 09-07-2024 15:28-0400 Body temperature 98.29 [degF] Kendall Winters PA-C Work Phone: [facility] 09-07-2024 15:28-0400 Body weight 92.99 kg Kendall Singh PA-C Work Phone: [facility] 09-07-2024 15:28-0400 Diastolic blood pressure 89 mm[Hg] Kendall Singh PA-C Work Phone: [facility] 09-07-2024 15:28-0400 Heart rate 71 /min Kendall Singh PA-C Work Phone: [facility] 09-07-2024 15:28-0400 Respiratory rate 18 /min Kendall Singh PA-C Work Phone: [facility] 09-07-2024 15:28-0400 SaO2% (BldA) [Mass fraction] 96 % Kendall Winters PA-C Work Phone: [facility] 09-07-2024 15:28-0400 Systolic blood pressure 146 mm[Hg] Kendall Winters PA-C Work Phone: [facility] 05-11-2023 09:20-0400 Body temperature 97 [degF] Dr. Juanita Regan Work Phone: [facility] 05-11-2023 09:20-0400 Diastolic blood pressure 74 mm[Hg] Dr. Juanita Regan Work Phone: [facility] 05-11-2023 09:20-0400 Heart rate 59 /min Dr. Juanita Regan Work Phone: [facility] 05-11-2023 09:20-0400 Respiratory rate 16 /min Dr. Juanita Regan Work Phone: [facility] 05-11-2023 09:20-0400 SaO2% (BldA) [Mass fraction] 99 % Dr. Juanita Regan Work Phone: [facility] 05-11-2023 09:20-0400 Systolic blood pressure 112 mm[Hg] Dr. Juanita Regan Work Phone: [facility] 05-11-2023 07:11-0400 Body height 177.[address] Juanita Regan Work Phone: [facility] 05-11-2023 07:11-0400 Body mass index (BMI) [Ratio] 30.3 kg/m2 Dr. Juanita Regan Work Phone: [facility] 05-11-2023 07:11-0400 Body weight [address] Juanita Regan Work Phone: [facility] 03-23-2023 14:34-0500 Body mass index (BMI) [Ratio] 32.1 kg/m2 Dr. Juanita Regan Work Phone: [facility] 03-23-2023 14:34-0500 Body temperature 98.1 [degF] Dr. Juanita Regan Work Phone: [facility] 03-23-2023 14:34-0500 Body weight 98.[address] Juanita Regan Work Phone: [facility] 03-23-2023 14:34-0500 Diastolic blood pressure 84 mm[Hg] Dr. Juanita Regan Work Phone: [facility] 03-23-2023 14:34-0500 Heart rate 94 /min Dr. Juanita Regan Work Phone: [facility] 03-23-2023 14:34-0500 Respiratory rate 18 /min Dr. Juanita Regan Work Phone: [facility] 03-23-2023 14:34-0500 SaO2% (BldA) [Mass fraction] 97 % Dr. Juanita Regan Work Phone: [facility] 03-23-2023 14:34-0500 Systolic blood pressure 125 mm[Hg] Dr. Juanita Regan Work Phone: [facility] 03-08-2023 08:45-0500 Body height 175.26 cm MD Edwin Jordan Work Phone: [facility] 03-08-2023 08:45-0500 Body mass index (BMI) [Ratio] 31.4 kg/m2 MD Edwin Jordan Work Phone: [facility] 03-08-2023 08:45-0500 Body temperature 97.8 [degF] MD Edwin Jordan Work Phone: [facility] 03-08-2023 08:45-0500 Body weight 96.61 kg MD dEwin Jordan Work Phone: [facility] 03-08-2023 08:45-0500 Diastolic blood pressure 76 mm[Hg] MD Edwin Jordan Work Phone: [facility] 03-08-2023 08:45-0500 Heart rate 68 /min MD Edwin Jordan Work Phone: [facility] 03-08-2023 08:45-0500 Respiratory rate 14 /min MD Edwin Jordan Work Phone: [facility] 03-08-2023 08:45-0500 SaO2% (BldA) [Mass fraction] 97 % MD Edwin Jordan Work Phone: [facility] 03-08-2023 08:45-0500 Systolic blood pressure 110 mm[Hg] MD Edwin Jordan Work Phone: [facility] 11-24-2022 13:00-0400 Body mass index (BMI) [Ratio] 31.3 kg/m2 MD Edwin Jordan Work Phone: [facility] 11-24-2022 13:00-0400 Body weight 96.21 kg MD Edwin Jordan Work Phone: [facility] Encounters Encounter Date Encounter Type Care Provider Facility Start: 10-10-2024 Encounter for genera l adult medical examination without abnormal findings Robert BELL [facility] Start: 10-10-2024 End: 10-10-2024 Patient encounter procedure Robert BELL [facility] Work Phone: Start: 10-10-2024 End: 10-10-2024 Patient encounter status Robert BELL [facility] Start: 10-10-2024 End: 10-10-[address] Juanita Regan MD Work Phone: [facility] Start: 09-07-2024 End: 09-07-2024 Office outpatient new 45 minutes Kendall Winters PA-C Work Phone: [facility] Comment on above: Contact with and (palma spected) exposure to covid-19 (Primary Dx); Sore throat; Sinobronchitis Start: 05-22-2023 Non-patient / Non-visit Dr. Blackmon Work Phone: [facility] Start: 05-22-2023 End: 05-22-[address] Juanita Regan Work Phone: [facility] Work Phone: Start: 05-22-2023 End: 05-22-[address] [facility] Start: 05-11-2023 Non-patient / Non-visit Dr. Blackmon Work Phone: [facility] Start: 05-11-2023 End: 05-11-2023 Admission to same day surgery center Dr. Juanita Regan Work Phone: [facility] Work Phone: Start: 05-11-2023 End: 05-11-[address] Juanita Regan Work Phone: [facility] Work Phone: Start: 03-23-2023 End: 03-23-[address] Juanita Regan Work Phone: [facility] Work Phone: Start: 03-08-2023 End: 03-08-2023 ambulatory MD Edwin Jordan Work Phone: [facility] Work Phone: Start: 03-08-2023 End: 03-08-2023 Patient encounter procedure MD Edwin Jordan Work Phone: [facility] Work Phone: Start: 11-24-2022 End: 11-24-2022 Patient encounter procedure MD Edwin Jordan Work Phone: [facility] Work Phone: Procedures Date Procedure Procedure Detail Performing Clinician Start: 09-07-2024 End: 09-07-2024 Iaadiadoo streptococcus group a Kendall Winters PA-C Work Phone: Start: 05-11-2023 End: 05-11-[address] Juanita Regan Work Phone: Start: 11-24-2022 Plain x-ray of wrist MD Edwin Jordan Work Phone: Plan of Treatment Date Care Activity Detail Author Start: 05-10-2033 Screening for malignant neoplasm of colon [facility] Start: 10-13-2024 Influenza vaccination Influenza Vaccine (#1) [facility] Start: 05-11-2023 Colsc flx w/rmvl of tumor polyp lesion snare tq COLONOSCOPY W/LESION REMOVAL [facility] Start: 05-11-2023 Patient discharge [facility] Start: 03-08-2023 Patient referral [facility] Work Phone: Start: 05-08-2017 Pneumococcal vaccination Pneumococcal Vaccine (1 of 1 - PCV) [facility] Start: 05-08-2017 Zoster Vaccines (1 of 2) Zoster Vaccines (1 of 2) [facility] Start: 05-08-1989 DTaP/Tdap/Td Vaccines (1 - Tdap) DTaP/Tdap/Td Vaccines (1 - Tdap) [facility] Start: 05-08-1986 Hepatitis B Vaccines (1 of 3 - 19+ 3-dose series) Hepatitis B Vaccines (1 of 3 - 19+ 3-dose series) [facility] Start: 05-08-1985 Hepatitis C screening Hepatitis C Screening [facility] Start: 05-08-1968 MMR Vaccines (1 of 1 - Standard series) MMR Vaccines (1 of 1 - Standard series) [facility] Start: 1967 HIV screening HIV Screening [facility] Start: 1967 Lipid panel Lipid Panel [facility] Start: 1967 Screening for malignant neoplasm of colon [facility] Start: 1967 Yearly Adult Physical Yearly Adult Physical [facility] Arthrography of wrist [facility] CBC W Auto Different ial panel - Blood [facility] Colonoscopy [facility] Comprehensive metabo lic 1999 panel - Serum or Plasma [facility] Lipid 1996 panel - S lobito or Plasma [facility] Patient referral [facility] Work Phone: Prostate specific an tigen measurement [facility] US Heart [facility] Immunizations Immunization Date Immunization Notes Care Provider Fa rudy 12-07-2023 influenza virus vaccine, unspecified formulation Kendall Winters PA-C Work Phone: [facility] Work Phone: 03-08-2023 influenza, injectabl e, quadrivalent, preservative free MD Edwin Jordan Work Phone: [facility] Payers Date Payer Category Payer Self-pay 2024 Unknown [id number] 2024 [employer] Alpesh madrigal [facility] Care [facility] [id number] Unknown [id number] Unknown [id number] Social History Date Type Detail Facility Start: 03-08-2023 End: 2023 Tobacco smoking status NHIS Unknown if ever smoked [facility] Start: 1965 Sex Assigned At Male [facility] Start: 09-07-2024 [facility] Work Phone: Start: 09-07-2024 Alcoholic beverage intake Current drinker of alcohol (finding) [facility] Work Phone: Start: 09-07-2024 History of Social function [facility] Work Phone: Start: 09-07-2024 Tobacco use panel [facility] Work Phone: Start: 1965 Sex assigned at Not on file [facility] Work Phone: Start: 09-07-2024 Sex Male [facility] Start: 2023 Tobacco smoking stat us MOIS Ex-smoker (finding) [facility] Goals Date Patient Goal Desired Activity /State Mental Status Date Assessment Result Facility 05-11-2023 Cognitive function Voice/Name [facility] Work Phone: History of Present illness Narrative 09-07-2024 Kendall Winters PA-C - 09/07/2024 3:25 PM EDT Note Date & Type Note Facility 09-07-2024 History of Present illness Narrative Subjective Patient ID: Isael Alexander is a 59 y.o. male. They present today with a chief complaint of sick Patient disposition: Home HISTORY OF PRESENT ILLNESS: 59 year old male presents for 7 days of flulike symptoms including dry cough, body aches, subjective fevers, mild ST. Denies KEEN, CP, SOB, GI sx. Denies known sick exposures. Cough worsening past few days. Admits cheek pressure and thick yellow mucus drainage. Past Medical History Allergies as of 09/07/2024 (No Known Allergies) Prescriptions Prior to Admission[1] Medical History[2] Surgical History[3] reports that he has never smoked. He does not have any smokeless tobacco history on file. He reports current alcohol use. He reports that he does not use drugs. Review of Systems Negative except as documented in the History of Present Illness. Objective Vitals: 09/07/24 1528 BP: 146/89 BP Location: Right arm Patient Position: Sitting BP Cuff Size: Adult Pulse: 71 Resp: 18 Temp: 36.8 C (98.3 F) TempSrc: Oral SpO2: 96% Weight: 93 kg (205 lb) Height: 1.753 m (5' 9") No LMP for male patient. PHYSICAL EXAMINATION: CONSTITUTIONAL: well-appearing, nontoxic ENT: Head and face are unremarkable and atraumatic. Mucous membranes moist. Positive bl maxillary sinus TTP * Oropharynx nl. Airway patent. * No uvular deviation. No visible abscess. * Lymphadenopathy absent. * TMs nl bl. LUNGS: Coarse diffusely, no r/r/w. No increased WOB. CARDIOVASCULAR: RRR, no m/r/g. Nl S1/S2. ABDOMEN: Nontender including left upper quadrant, nondistended, no acute abdomen. MUSCULOSKELETAL: No obvious deformities. MCCLOUD with equal strength. Gait normal. SKIN: Warm and dry with no rashes. NEURO: Normal baseline mental status. PSYCH: Appropriate mood and affect. MDM: Rapid testing all negative. Clinically, sinobronchitis of uncertain etiology (viral vs bacterial). Coverage for possible ABRS given with Augmentin. Bronchitis tx with prednisone, Tessalon. The potential side effects of corticosteroid use were discussed at length with the patient. These risks include but are not limited to: difficulty sleeping, increased appetite, fluid retention, mood changes, weight gain, change in blood pressure, high blood glucose, possible adrenal suppression, osteoporosis, avascular necrosis of the hip, menstrual irregularities (if applicable), increased risk of infection, and cataracts. The patient understands these risks and is willing to proceed with steroid therapy. Will fu here PRN if not resolved or if worsening. The complexity of this visit was moderate because this was a new, previously undiagnosed medical problem and because Rx management was required, plus because of the testing performed and interpreted by me for this visit, plus because of the RISK of worsening infection eg pneumonia, sepsis, hypoxia. Procedures Diagnostic study results (if any) were reviewed by Kendall Winters PA-C. No results found for this visit on 09/07/24. Assessment/Plan Allergies, medications, history, and pertinent labs/EKGs/Imaging reviewed by Kendall Winters PA-C. Orders and Diagnoses Diagnoses and all orders for this visit: Sore throat - POCT SPOTFIRE R/ST Panel Mini w/Strep A ([facility] manually resulted Medical Admin Record Follow Up Instructions No follow-ups on file. Electronically signed by Kendall Winters PA-C 3:35 PM [1] (Not in a hospital admission) [2] No past medical history on file. [3] No past surgical history on file. documented in this encounter [facility] Work Phone: History and physical note 05-11-2023 Note Date & Type Note Facility 05-11-2023 History and physi delfin note Note Date/Time May 11, 2023 8:40am [facility] Medical Records Department [address] [place] [id number] History & Physical Exam 05/11/23 0840 MR#: [id number] Acct: [id number] Name: ISAEL ALEXANDER III Rep #:[id number] : 1965 58 From: Pasquale girard MD PCP: Dr. Juanita Regan MD Status:[facility] Location: [place] [address] History and Physical Date of Admission: 05/11/23 Intake Vital Signs 03/08/2407:45 03/23/2413:34 Height 5 ft 9 in 5 ft 9 in Weight: 213 lb 217 lb 2 oz BMI 31.4 32.1 BP 110/76 125/84 H Blood Pressure Location Lt brachial Rt brachial Position Sitting Sitting Respiration 14 18 Pulse 68 94 Pulse Source Monitor Monitor Temp 97.8 F 98.1 F Temp Source Temporal Temporal Pulse Oximetry (%) 97 97 Oxygen Delivery Method room air room air Intake Visit Reasons: HEMORRHAGE, COLONOSCOPY SCREENING Chief Complaint: hemorrhage, colonoscopy screening [employer] Required: No Is patient in pain?: No Allergies No Known Allergies Allergy (Unverified 03/23/23 14:35) Medications multivitamin with minerals-folic acid 200 mcg chewable tablet (Men's Daily Gummies) tab PO 11/24/22 [History Confirmed 03/23/23] atorvastatin 10 mg tablet (Lipitor) 10 mg PO QHS #30 tabs 03/09/23 [Rx Confirmed 03/23/23] PFSH Medical History De Quervain's tenosynovitis, right Ganglion cyst of dorsum of right wrist GERD (gastroesophageal reflux disease) Hyperlipemia Mitral valve prolapse Right carpal tunnel syndrome Right wrist pain Surgical History No pertinent past surgical history Family History Aunt DiabetesAunt Heart diseaseFather Hyperlipidemia SchizophreniaGrandfather AlcoholismMother ArthritisGrandmother ArthritisSister Skin cancerOther Hypertension Social History adopted: No household members: spouse and children number of children: 2 current occupational status: employed 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 pets and animals: Yes Smoking Status: Former smoker quit date: 02/13/96 pack-years: 13 Tobacco: How many years used: 13 Electronic Cigarette Use: not used alcohol intake: current alcohol intake frequency: 0-2 drinks per day Alcohol type: hard liquor substance use type: does not use caffeine: Yes (3) Type: coffee frequency: 1-2 times per week seatbelt use: always do you feel safe at home: Yes HPI HPI HPI: Patient is a 57-year-old male here for rectal bleeding. He reports the bleedingstarted 5 to 6 years ago. He says it is painless and it was bright red but it is becoming a little bit darker. He says this happens about 75% of his bowel movements. He had a colonoscopy 3 years ago and a few polyps were removed but nothing was done about the continued bleeding and he continued to bleed for the last 3 years. He denies any abdominal pain. No family history of colon cancer. ROS General General: Yes weight change (gain) HEENT HEENT: Yes difficulty swallowing Musc Musculoskeletal: Yes arthritis Gastro Gastrointestinal: Yes blood in stool Exam Const General: cooperative Orientation: alert and oriented x3 HENMT Head: normal to inspection Neck Neck: normal visual inspection and full ROM Chest Chest palpation & inspection: normal inspection of the chest Resp Effort & Inspection: normal respiratory effort Auscultation: clear to auscultation bilaterally Cardio Rate: regular rate Rhythm: regular rhythm GI Inspection: non-distended Palpation: soft and nontender Skin General: no rashes or lesions noted Neuro General: patient alert and patient oriented x3 Extrem General: full ROM Psych Appearance: grossly normal Mental Status: mental status grossly normal Assessment and Plan Assessment and Plan (1) Blood in stool: Status: Acute Plan: Patient is having blood in his stool but he also reported that it is becoming darker. I am more concerned for a more proximal bleed. I would like to performa repeat colonoscopy to evaluate the colon and to reassess the hemorrhoids. If the patient has no other source of bleeding and has large hemorrhoids I would bring the patient back to discuss hemorrhoidectomy with him. I explained endoscopy in detail to the patient. I explained the risks includingbut not limited to stroke or heart attack with anesthesia, perforation of the GItract, bleeding, infection. I explained that any of these could necessitate further emergency surgery. The patient understands and all questions were answered sufficiently. The patient wishes to proceed with procedure. Pasquale Serna MD Pager: [facility] [address] [place] [address], [address] [place] [address] Office: I have examined the patient and the H&P has been reviewed. There are no clinicalchanges since date of exam. 05/11/23 0840 <Electronically signed by Pasquale Serna MD> Cosigner Signature (if applicable): CC: Dr. Juanita Regan MD; Dr. Pasquale Serna MD~ Signed [facility] Work Phone: Procedure note 05-11-2023 Note Date & Type Note Facility 05-11-2023 Procedure note [facility] Procedure note 05-11-2023 Note Date & Type Note Facility 05-11-2023 Procedure note [facility] Evaluation note Note Date & Type Note Facility Evaluation note Diagnosis Onset Date De Quervain's tenosynovitis, right acute Ganglion cyst of dorsum of right wrist acute Right carpal tunnel syndrome acute Right wrist pain acute Right wrist pain acute Screening for colon cancer n oneactive History of mitral valve prolapse noneactive Immunization due noneactive Establishing care with [facility], encounter for noneactive Mixed hyperlipidemia noneact ehsan Rectal bleeding noneactive Urinary dribbling noneactive [facility] Work Phone: Evaluation note Note Date & Type Note Facility Evaluation note Diagnosis Onset Date Right wrist pain acute Screening for colon cancer n oneactive History of mitral valve prolapse noneactive Immunization due noneactive Establishing care with [facility], encounter for noneactive Mixed hyperlipidemia noneact ehsan Rectal bleeding noneactive Urinary dribbling noneactive Blood in stool acute [facility] Work Phone: Evaluation note Note Date & Type Note Facility Evaluation note Diagnosis Contact with and (suspected) exposure to covid-19- Primary Sore throat Acute pharyngitis Sinobronchitis documented in this encounter [facility] Work Phone: Evaluation note Note Date & Type Note Facility Evaluation note Diagnosis Onset Date Resolution Routine adult health maintenance acute October 10 3:44pm [facility] [employer] [facility] Work Phone: Reason for referral (narrative) Note Date & Type Note Facility Reason for referral (narrative) No reason for referral information available [facility] [employer] Work Phone: Chief Complaint and Reason for Visit Chief Complaint RIGHT HAND Room 1 EST NEW PT - PPW SENT Reason for Visit De Quervain's tenosy novitis, right Ganglion cyst of dorsum of right wrist Right carpal tunnel syndrome Right wrist pain Right wrist pain Screening for colon cancer History of mitral valve prolapse Immunization due Establishing care with new doctor, encounter for Mixed hyperlipidemia Rectal bleeding Urinary dribbling Chief Complaint EST NEW PT - PPW SEN T HEMORRHAGE, COLONOSCOPY SCREENING Reason for Visit Right wrist pain Screening for colon cancer History of mitral valve prolapse Immunization due Establishing care with new doctor, encounter for Mixed hyperlipidemia Rectal bleeding Urinary dribbling Blood in stool Chief Complaint EST NEW PT - PPW SEN T HEMORRHAGE, COLONOSCOPY SCREENING MITRAL VALVE PROLAPSE Reason for Visit Right wrist pain Screening for colon cancer History of mitral valve prolapse Immunization due Establishing care with new doctor, encounter for Mixed hyperlipidemia Rectal bleeding Urinary dribbling Blood in stool Chief Complaint Admit Date YEARLY October 10, 2024 3: 44pm Reason for Visit Admit Date Routine adult health maintenance October 10, 2024 3:44pm Family History No Family History Records Found Relationship Condition Age at Onset Recorded Date/T anna Not Specified Hypertension Unknown aunt Diabetes mellitus Unknown aunt Cardiac disease Unknown father Hyperlipidemia Unknown Schizophrenia Unknown grandfather Alcoholism Unknown mother Arthritis Unknown grandmother Arthritis Unknown sister Malignant neoplasm of skin Unknown Advance Directives No Advanced Directives Records Found Advance Directive Response Recorded Date/ Time Living Will No 2023 12:25pm Power of Tassel Clipper No May 08 12:25pm Summary Purpose Additional Source Comments Care Teams (unrecognized sec tion and content) Team Status: Active Member Role Status Dates Dr. Juanita Regan MD Primary Care Provider Active Team Status: Inactive Member Role Status Dates Edwin Jordan MD Attending Provider Active Team Status: Inactive Member Role Status Dates Dr. Florencio Mirza MD Attending Provider Active Team Status: Inactive Member Role Status Dates Dr. Juanita Regan MD Attending Provider Active Team Status: Inactive Member Role Status Dates Dr. Juanita Regan MD Primary Care Pro vider, Attending Provider, Referring Provider Active Team Status: Inactive Member Role Status Dates Dr. Juanita Regan MD Primary Care Provider, Referri ng Provider Active Dr. Pasquale Serna MD Attending Provider Active Team Status: Active Member Role Status Dates Dr. Juanita Regan MD Primary Care Provider, Referri ng Provider Active Dr. Pasquale Serna MD Attending Provider, Other Provider Active Team Status: Active Member Role Status Dates Dr. Juanita Regan MD Primary Care Provider Active Dr. Vanita Beaver MD Attending Provider Activ e Team Status: Active Member Role/Relationship Status Dates Dr. Juanita Regan MD Primary Care Provider Active Team Status: Inactive Member Role/Relationship Status Dates Dr. Juanita Regan MD Primary Care Provider Active Start: October 10, 2024 End: October 10, 2024 Dr. Juanita Regan MD Referring Provider Active Start: October 10, 2024 End: October 10, 2024 Robert BELL PA Attending Provider Active St art: October 10, 2024 End: October 10, 2024 Goals (unrecognized section and content) Goals may be documented in a n alternate sectionGoals may be documented in an alternate section Reason for Visit (unrecogniz ed section and content) Reason Comments Sore Throat Cough Nasal Congestion Headache X 7 days - at home C OVID test (unrecognized sect ion and content) No Status Records Found INFORMATION SOURCE (unrecogn ized section and content) DATE CREATED AUTHOR 10/15/2024 [facility] FOR RECORDS PERTAINING TO PATIENTS WHO ARE OR HAVE BEEN ENROLLED IN A CHEMICAL DEPENDENCY/SUBSTANCEABUSE PROGRAM, SOME INFORMATION MAY BE OMITTED. This clinical summary was aggregated from multiple sources. Caution should be exercised in using it in the provision of clinical care. This summary normalizes information from multiple sources, and as a consequence, information in this document may materially change the coding, format and clinical context of patient data. In addition, data may be omitted in some cases. CLINICAL DECISIONS SHOULD BE BASED ON THE PRIMARY CLINICAL RECORDS. [employer] provides no warranty or guarantee of the accuracy or completeness of information in this document.
[2024-12-20 15:40] VITALS: BMI 29.9
--- NOTE | 2024-12-20 15:41 | RAD_ITS ---
PROCEDURE: ANKLE MIN 3 VIEWS 12/20/2024 REASON FOR EXAM: PAIN. fall. Pain and swelling laterally. TECHNIQUE: Procedure Code: RADANK Modality: DX Procedure: ANKLE MIN 3 VIEWS Laterality: Right COMPARISON: None. FINDINGS: BONES: Tiny calcific density along the medial tip of the lateral malleolus, only seen on the oblique view. Small achilles tendon insertional enthesophyte. JOINTS: No dislocation. The joint spaces are normal. SOFT TISSUES: Mild swelling in the lateral ankle. RAD/Ankle min 3 Views IMPRESSION: Tiny calcific density along the lateral malleolar tip, only seen on one view. An acute avulsion fracture is possible. Reading Location: [id number]
--- NOTE | 2024-12-20 15:41 | RAD_ITS ---
PROCEDURE: FOOT MIN 3 VIEWS 12/20/2024 REASON FOR EXAM: PAIN. Fall, pain and swelling laterally. TECHNIQUE: Procedure Code: RADFO Modality: DX Procedure: FOOT MIN 3 VIEWS Laterality: Right COMPARISON: None. FINDINGS: BONES: No acute fracture or focal osseous lesion. Small achilles tendon insertional enthesophyte. JOINTS: No dislocation. Minimal arthritic changes in the 1st metatarsophalangeal joint. SOFT TISSUES: The soft tissues are unremarkable. RAD/Foot min 3 Views IMPRESSION: NO ACUTE FRACTURE OR DISLOCATION. Reading Location: [id number]
--- NOTE | 2024-12-20 16:45 | EX.ED.DYSGE1 ---
HPI History of Present Illness Chief Complaint: Lower Extremity Injury Informant: patient and spouse/S.O. Narrative Narrative: Patient is a 59-year-old male with past medical history of hyperlipidemia and GERD. He states that a few hours ago he was coming down off a ladder and fell roughly 18 inches. He states he landed with his right foot turned inward. He denies any other trauma. He states he had pain and swelling with difficulty ambulating since that time. With concern for fracture he presents for evaluation. [facility] Medical History Wears glasses Alcohol use History of steroid therapy High cholesterol Former smoker History of stress test Chest pain History of echocardiogram History of irregular heartbeat GERD (gastroesophageal reflux disease) Hyperlipemia Ganglion cyst of dorsum of right wrist De Quervain's tenosynovitis, right Right carpal tunnel syndrome Right wrist pain Mitral valve prolapse Home Medications Medication Instructions Recorded Last Taken Type multivitamin with minerals-folic 1 tab PO DAILY 11/24/22 Unknown History acid 200 mcg chewable tablet (Men's Daily Gummies) ascorbic acid (vitamin C) 1,000 mg 1 g PO DAILY 05/09/23 Unknown History tablet (C-1000) coenzyme Q10 100 mg capsule (Co 100 mg PO DAILY 05/09/23 Unknown History Q-10) loratadine 10 mg tablet (Allergy 10 mg PO DAILY 05/09/23 Unknown History Relief (loratadine)) zinc 50 mg tablet 50 mg PO DAILY 05/09/23 Unknown History niacin 500 mg capsule,extended 500 mg PO DAILY 06/28/23 Unknown History release vitamin E (dl, acetate) 45 mg (100 45 mg PO DAILY 06/28/23 Unknown History unit) capsule sildenafil 50 mg tablet 50 mg PO DAILY PRN sexual activity 08/24/23 Unknown Rx #12 tabs atorvastatin 10 mg tablet (Lipitor) 10 mg PO QHS #90 tabs 10/10/24 Unknown Rx benzonatate 200 mg capsule 200 mg PO TID PRN cough #30 caps 10/10/24 Unknown Rx ondansetron 4 mg disintegrating 4 mg PO TID PRN nausea and 12/20/24 Unknown Rx tablet vomiting #21 tabs oxycodone-acetaminophen 5 mg-325 1 tab PO Q6H PRN pain 3 days #12 12/20/24 Unknown Rx mg tablet (Percocet) tabs Allergy/AdvReac Type Severity Reaction Status Date / Time No Known Allergies Allergy Verified 12/20/24 15:08 Family History Aunt Diabetes Aunt Heart disease Father Hyperlipidemia Schizophrenia Grandfather Alcoholism Mother Arthritis Grandmother Arthritis Sister Skin cancer Other Hypertension Surgical History Hx of colonoscopy No pertinent past surgical history Social History adopted: No household members: spouse and children number of children: 2 current occupational status: employed 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 [employer] pets and animals: Yes Smoking Status: Former smoker quit date: 02/13/96 pack-years: 13 Tobacco: How many years used: 13 Electronic Cigarette Use: not used alcohol intake: current alcohol intake frequency: 0-2 drinks per day Alcohol type: hard liquor substance use type: does not use caffeine: Yes (3) Type: coffee frequency: 1-2 times per week seatbelt use: always do you feel safe at home: Yes ROS ROS ED Constitutional Constitutional ED: Denies chills or fever(s) Eyes Eyes: Denies change in vision Cardiovascular Cardiovascular: Reports other Details: Negative syncope ; Denies chest pain Respiratory/Chest Respiratory/Chest: Denies cough or dyspnea Gastrointestinal Gastrointestinal: Denies abdominal pain, diarrhea, nausea or vomiting Musculoskeletal Musculoskeletal: Reports other Details: Positive right foot/ankle pain ; Denies back pain Integumentary Denies Abrasions or rash Neurologic Neurologic: Denies headache(s) Hematologic/Lymphatic Hematologic/Lymphatic: Denies easy bleeding or easy bruising EXAM Physical Exam Const Vital Signs: 12/20/24 15:08 Temperature 96.5 F L Temperature Source Temporal Pulse Rate 85 Respiratory Rate 18 Blood Pressure 144/94 H Blood Pressure Mean 110 Pulse Ox 97 Oxygen Delivery Method Room Air Positive well nourished and well developed General Appearance ED: well developed; Negative for pallor HEENT HEENT Narrative: Normocephalic atraumatic Eyes PERRL and EOMs intact bilaterally Neck supple Resp normal respiratory effort and clear to auscultation bilaterally Cardio regular rate and regular rhythm Extremity Extremity Narrative: Right lower extremity is neurovascularly intact. Patient has soft tissue swelling with ecchymosis mainly along the lateral aspect of the right ankle over top the lateral malleolus and this extends down to the proximal dorsal aspect of the right foot. There is no obvious bony deformity or joint effusion. There is increased laxity with inversion of the right ankle compared to the left concerning for ligamentous tear. There is also pain with palpation near the fifth metatarsal. All compartments are soft and compressible going against compartment syndrome Remainder of the exam is normal Neuro oriented x3, CN's II-XII intact bilaterally and no sensory deficits noted Sensorium / Orientation: alert Psych mental status grossly normal Skin no rashes or lesions noted Skin Narrative: Capillary refills less than 3 seconds Soft tissue swelling ecchymosis along the lateral aspect of the right ankle and foot as documented above General Skin Exam: Negative for jaundice or pallor MDM MDM MDM Narrative Medical decision making narrative: Patient arrived to ER slightly hypertensive but otherwise with stable vitals. He had a mechanical fall and therefore there is no need for cardiac or syncope workup. He only injured his right ankle and foot and there are no signs of injury to the low back or other extremity so I have low concern for compression fracture or pubic rami or femoral neck fracture. Therefore I do not feel need for a x-ray of the ankle and foot to assess for potential ankle fracture versus dislocation versus metatarsal fracture. X-ray of the ankle revealed a small chip off the lateral malleolus concerning for avulsion fracture. X-ray of the foot revealed no metatarsal fracture. At this time based on the small avulsion fracture as well as a ligamentous laxity I also have concern for a grade 2 ankle sprain. I do feel that placement in the boot is the safest option to provide stabilization to the avulsion fracture as well as the grade 2 sprain. Patient will follow-up with podiatry to discuss potential need for MRI to further assess his ligament. However at this time he is close he is neurovascularly intact he does not have compartment syndrome or signs of infection so therefore there is no need for other workup and he is otherwise safe for discharge. History & Record Review Discussion w/independent historian: Patient and Significant other Radiography Diagnostic Testing: Clinical Impression(s) from Imaging Studies Ankle X-Ray 12/20/24 15:41 IMPRESSION: Tiny calcific density along the lateral malleolar tip, only seen on one view. An acute avulsion fracture is possible. Reading Location: [facility] [place] Foot X-Ray 12/20/24 15:41 IMPRESSION: NO ACUTE FRACTURE OR DISLOCATION. Reading Location: [facility] [place] Right ankle x-rays interpreted by the emergency medicine physician reveals a small density off the medial malleolus concerning for avulsion fracture X-ray of the right foot as interpreted by the emergency medicine physician reveals no acute fracture or dislocation Discharge Plan Triage Chief Complaint: Lower Extremity Injury ED Provider: Jeremie Peguero Dx/Rx/DC Orders Clinical Impression: Avulsion fracture of right ankle, Grade 2 ankle sprain, Hyperlipemia, GERD (gastroesophageal reflux disease) Instructions: ED Ankle Sprain (Adult) Prescriptions: New oxycodone-acetaminophen [Percocet] 5-325 mg tablet 1 tab PO Q6H PRN (Reason: pain) 3 Days Qty: 12 0RF ondansetron 4 mg tablet,disintegrating 4 mg PO TID PRN (Reason: nausea and vomiting) Qty: 21 0RF No Action multivit with min-folic acid [Men's Daily Gummies] 200 mcg tablet,chewable 1 tab PO DAILY sildenafil 50 mg tablet 50 mg PO DAILY PRN (Reason: sexual activity) Qty: 12 0RF Rx Instructions: administer 30 minutes to 4 hours before activity niacin 500 mg capsule, extended release 500 mg PO DAILY vitamin E (dl, acetate) 45 mg (100 unit) capsule 45 mg PO DAILY atorvastatin [Lipitor] 10 mg tablet 10 mg PO QHS Qty: 90 2RF benzonatate 200 mg capsule 200 mg PO TID PRN (Reason: cough) Qty: 30 0RF coenzyme Q10 [Co Q-10] 100 mg capsule 100 mg PO DAILY loratadine [Allergy Relief (loratadine)] 10 mg tablet 10 mg PO DAILY ascorbic acid (vitamin C) [C-1000] 1,000 mg tablet 1 g PO DAILY zinc 50 mg tablet 50 mg PO DAILY Primary Care Provider: Juanita Regan Referrals: Juanita Regan MD [Primary Care Provider, Internal Medicine] Mir Lazo DPM [Med Staff - Active Staff, Podiatry] Activity Restrictions/Additional Instructions: Your x-ray showed a small avulsion fracture which would typically just heal with time. Your physical exam is concerning for a ligamentous tear. Wear your walking boot to help with stabilization. Use crutches as needed for weightbearing. Follow-up with podiatry to discuss further treatment or testing options such as MRI and return to the ER should you have any further concerns Print Language: Upper Sorbian Disposition Disposition: Home, Self Care Discharge Date/Time: 12/20/24 17:06
[2024-12-20 17:04] VITALS: BP 130/65; PULSE 71; RESP 18; TEMP 37; O2SAT 97
== END 2024-12-20 17:06 | disposition home or self-care (01) ==
PROVIDERS: Emergency Provider Emergency Medicine; PCP Internal Medicine; Visit Provider Emergency Medicine
DX: S82.891A Other fracture of right lower leg, initial encounter for closed fracture (principal); K21.9 Gastro-esophageal reflux disease without esophagitis; E78.5 Hyperlipidemia, unspecified; Z87.891 Personal history of nicotine dependence; S93.401A Sprain of unspecified ligament of right ankle, initial encounter; W11.XXXA Fall on and from ladder, initial encounter
CPT/HCPCS: 73610; 73630; 99283